=== PATIENT | female | born 1995 | race Caucasian/White ===

== ENCOUNTER 2021-09-19 12:33 | Emergency (ER) | payer OTHER, SELFPAY ==
[2021-09-19 12:51] VITALS: BP 153/65; PULSE 63; RESP 18; TEMP 36.8; O2SAT 98; BMI 18.8
[2021-09-19 13:38] LABS: Alanine Aminotransferase 12 IU/L (<35); Albumin 4.7 g/dL (3.5-5.0); Albumin Globulin Ratio 1.6 (1.0-2.8); Alkaline Phosphatase 45 U/L (38-126); Aspartate Aminotransferase 23 IU/L (14-36); BUN Creatinine Ratio 16.9 (6-22); Bilirubin Total 0.5 mg/dL (0.2-1.3); Blood Urea Nitrogen 11 mg/dL (7-17); Calcium 9.6 mg/dL (8.4-10.2); Carbon Dioxide 25 mmol/L (22-32); Chloride 107 mmol/L (98-107); Estimated Glomerular Filt Rate > 60.0 mL/min (>60); Globulin 2.9 g/dL (1.7-4.1); Glucose 95 mg/dL (70-100); HEMOLYSIS < 15 (0-50); Lipase 46 U/L (23-300); Sodium 141 mmol/L (137-145); Total Protein 7.6 g/dL (6.3-8.2)
[2021-09-19 13:43] LABS: Add Manual Diff / Slide Review NO; Basophils Absolute Auto 0 /uL (0-100); Basophils Percent Auto 0.5 % (0-2); Eosinophils Absolute Auto 100 /uL (0-450); Eosinophils Percent Auto 2.7 % (2-4); Hemoglobin 13.3 g/dL (12.0-16.0); Lymphocytes Absolute Auto 1600 /uL (1100-4500); Lymphocytes Percent Auto 32.1 % (25-40); Mean Corpuscular HGB Conc 34.9 % (30-36); Mean Corpuscular Hemoglobin 30.9 PG (26-34); Mean Corpuscular Volume 88.4 fL (80-100); Monocytes Absolute Auto 300 /uL (0-900); Monocytes Percent Auto 6.6 % (3-14); Neutrophils Absolute Auto 3000 /uL (1500-7000); Neutrophils Percent Auto 58.1 % (50-75); Platelet Count 166 X10^3/uL (150-400); Red Cell Distribution Width 12.2 % (11.6-14.8); White Blood Cell Count 5.1 X10^3/uL (4.5-11.0)
--- NOTE | 2021-09-19 14:17 | DI.CT.S_ITS ---
PROCEDURE: CT ABDOMEN PELVIS W CON INDICATIONS: Left upper quadrant mass TECHNIQUE: After the administration of intravenous contrast, axial sections acquired from the lung bases to the pubic symphysis. Coronal and sagittal reformats were performed. For radiation dose reduction, the following was used: automated exposure control, adjustment of mA and/or kV according to patient size. COMPARISON: None. FINDINGS: Image quality: Excellent. Lung bases: Unremarkable. Heart: No significant findings. ABDOMEN: Liver: 1 centimeter cyst versus hemangioma noted in the left lobe of the liver. Gallbladder: Unremarkable. Biliary ducts: Unremarkable. Pancreas: Unremarkable. Spleen: Unremarkable. Adrenal Glands: Unremarkable. Kidneys and Ureters: Unremarkable. Stomach and Bowel: Stomach, small bowel loops, and colon are unremarkable. Moderate amount of stool noted throughout the colon. Appendix is not definitely visualized, however no inflammatory changes or free fluid are identified adjacent to the cecum. Peritoneum: No abnormal intraperitoneal fluid. No free air. Ventral Wall: No hernias. No abnormal mass identified deep to metallic BB localizer placed over the upper left abdomen at the level of the lower stomach. Abdominal Nodes: No retroperitoneal or mesenteric adenopathy by size criteria. Vessels: Aorta and inferior vena cava are normal in size. PELVIS: Pelvic Organs: Unremarkable. Bladder: Unremarkable. Pelvic Nodes: No enlarged lymph nodes. Miscellaneous: No hernias are seen. Bones: Mild multilevel degenerative disc changes noted. L2 and L5 limbus vertebrae incidentally noted. IMPRESSION: 1. No abnormal mass identified. 2. Moderate fecal loading throughout the colon. Dictated by: Sandra Lo MD, PhD on 09/19/2021 at 14:41 Approved by: Sandra Lo MD, PhD on 09/19/2021 at 14:48
--- NOTE | 2021-09-19 15:06 | ED.ABDPAIN ---
HPI - Abdominal Pain <Stephen Ramirez PA-C - Last Filed: 09/19/21 18:51> General Chief Complaint: Abdominal Pain Stated Complaint: Left Abd Lump, Growing and Getting Harder Time Seen by Provider: 09/19/21 13:39 Source: patient Mode of arrival: Ambulatory History of Present Illness HPI narrative: Patient is a 26-year-old female presenting to the emergency department today for evaluation of a left-sided abdominal mass. Patient states that she 1st noticed the development of a mass just below her left ribcage on 08/27/2021, however she states that the mass has gotten bigger and ?harder? over time. [place] and a left upper quadrant ultrasound was obtained which was inconclusive. Patient states that the mass is not painful and she states that it is not spreading elsewhere. No fever, chills, chest pain, shortness of breath, cough, abdominal pain, nausea, vomiting, dysuria, hematuria reported no other concerns were voiced at this time. Related Data Home Medications Medication Instructions Recorded Confirmed estradiol-norgestimate 1 mg (15)/1 1 tab PO DAILY 09/19/21 09/19/21 mg-0.09 mg (15) tablet Allergies Allergy/AdvReac Type Severity Reaction Status Date / Time No Known Drug Allergies Allergy Verified 09/19/21 12:55 Review of Systems <Stephen Ramirez PA-C - Last Filed: 09/19/21 18:51> Constitutional Constitutional: Denies chills, Denies fatigue, Denies fever(s), Denies frequent falls, Denies lethargy and Denies weakness ENT Ears, Nose, Mouth, and Throat: Denies neck pain Cardiovascular Cardiovascular: Denies chest pain, Denies irregular heart rhythm, Denies lightheadedness, Denies palpitations, Denies dyspnea, Denies dyspnea on exertion and Denies orthopnea Respiratory Respiratory: Denies cough, Denies dyspnea, Denies dyspnea on exertion and Denies wheezing Gastrointestinal Gastrointestinal: Denies abdominal pain, Denies change in bowel habits, Reports constipation, Reports diarrhea, Denies nausea, Denies vomiting and Reports other (Left-sided abdominal mass) Genitourinary Genitourinary: Denies hematuria, Denies flank pain, Denies urinary incontinence and Denies urinary urgency Musculoskeletal Musculoskeletal: Denies back pain, Denies muscle weakness, Denies neck pain, Denies numbness and Denies tingling Integumentary/Breasts Skin/Breast: Denies pruritus, Denies erythema, Denies rash and Denies wounds Neurologic Neurologic: Denies frequent falls, Denies numbness, Denies tingling and Denies weakness Endocrine Endocrine: Denies fatigue and Denies palpitations Allergic/Immunologic Allergic/Immunologic: Denies wheezing Patient History <Stephen Ramirez PA-C - Last Filed: 09/19/21 18:51> Social History Smoking Status: Never smoker Smoking Status: Never smoker alcohol intake frequency: 0-2 drinks per day Substance Use Type: does not use Exam <Stephen Ramirez PA-C - Last Filed: 09/19/21 18:51> Narrative Exam Narrative: GENERAL: 26 year old patient appears stated age. Well-developed patient, in no acute distress. HEAD: Atraumatic. Normocephalic. EYES: Pupils equal round and reactive. Extraocular motions intact. No scleral icterus. No injection or drainage. ENT: Nose without bleeding, purulent drainage. Throat without erythema, tonsillar hypertrophy or exudate. Airway patent. NECK: Trachea midline. Non tender CARDIOVASCULAR: Regular rate and rhythm without murmurs, gallops, or rubs. RESPIRATORY: Clear to auscultation. Breath sounds equal bilaterally. No wheezes, rales, or rhonchi. GASTROINTESTINAL: Abdomen soft, nondistended. Approximately 4 cm mass appreciated in left upper quadrant of the abdomen inferior to the left rib cage. Mild tenderness to palpation appreciated along the left upper quadrant. No swelling, fluctuance, warmth, or erythema appreciated. EXTREMITIES: No edema or joint tenderness. BACK: Nontender without deformity or crepitance. No flank tenderness. NEURO: AOx3. SKIN: No rash or erythema of visible areas Initial Vital Signs Initial Vital Signs: Vital Signs Temperature 98.3 F 09/19/21 12:51 Pulse Rate 63 09/19/21 12:51 Respiratory Rate 18 09/19/21 12:51 Blood Pressure 153/65 H 09/19/21 12:51 Pulse Oximetry 98 09/19/21 12:51 <Lizandro Herrera DO - Last Filed: 09/20/21 08:36> Initial Vital Signs Initial Vital Signs: Vital Signs Temperature 98.3 F 09/19/21 12:51 Pulse Rate 63 09/19/21 12:51 Respiratory Rate 18 09/19/21 12:51 Blood Pressure 153/65 H 09/19/21 12:51 Pulse Oximetry 98 09/19/21 12:51 Course <Stephen Ramirez PA-C - Last Filed: 09/19/21 18:51> Course Course Narrative: CBC, CMP, lipase, urine dipstick, CT abdomen and pelvis ordered. Orders Ordered: ED Orders 09/19/21 13:00 Complete Blood Count AUTO DIFF Stat Comprehensive Metabolic Panel Stat Lipase Stat 09/19/21 14:17 CT abdomen pelvis w con Stat Vital Signs Vital signs: Vital Signs - 8 hr 09/19/21 12:51 09/19/21 15:19 Temperature 98.3 F Pulse Rate 63 55 L Respiratory Rate 18 16 Blood Pressure 153/65 H 105/63 Pulse Oximetry 98 99 <Lizandro Herrera DO - Last Filed: 09/20/21 08:36> Orders Ordered: ED Orders 09/19/21 13:00 Complete Blood Count AUTO DIFF Stat Comprehensive Metabolic Panel Stat Lipase Stat 09/19/21 14:17 CT abdomen pelvis w con Stat Vital Signs Vital signs: Vital Signs - 8 hr 09/19/21 12:51 09/19/21 15:19 Temperature 98.3 F Pulse Rate 63 55 L Respiratory Rate 18 16 Blood Pressure 153/65 H 105/63 Pulse Oximetry 98 99 MDM - Abdominal Pain <CHANCE Mohamud Last Filed: 09/19/21 18:51> Lab Data Result diagrams: 09/19/21 13:00 09/19/21 13:00 Labs: Lab Results 09/19/21 09/19/21 Range/Units 13:00 13:00 WBC 5.1 (4.5-11.0) X10^3/uL RBC 4.30 (4.0-5.2) X10^6/uL Hgb 13.3 (12.0-16.0) g/dL Hct 38.0 (36-46) % MCV 88.4 (80-100) fL MCH 30.9 (26-34) PG MCHC 34.9 (30-36) % RDW 12.2 (11.6-14.8) % Plt Count 166 (150-400) X10^3/uL Neut % (Auto) 58.1 (50-75) % Lymph % (Auto) 32.1 (25-40) % [place] % (Auto) 6.6 (3-14) % Eos % (Auto) 2.7 (2-4) % Baso % (Auto) 0.5 (0-2) % Neut # (Auto) 3000 (2765-1607) /uL Lymph # (Auto) 1600 (8460-3066) /uL [place] # (Auto) 300 (0-900) /uL Eos # (Auto) 100 (0-450) /uL Baso # (Auto) 0 (0-100) /uL Sodium 141 (137-145) mmol/L Potassium 4.0 (3.4-5.1) mmol/L Chloride 107 (98-107) mmol/L Carbon Dioxide 25 (22-32) mmol/L BUN 11 (7-17) mg/dL Creatinine 0.65 (0.52-1.04) mg/dL Estimated GFR > 60.0 (>60) mL/min BUN/Creatinine Ratio 16.9 (6-22) Glucose 95 (70-100) mg/dL Calcium 9.6 (8.4-10.2) mg/dL Total Bilirubin 0.5 (0.2-1.3) mg/dL AST 23 (14-36) IU/L ALT 12 (<35) IU/L Alkaline Phosphatase 45 (38-126) U/L Total Protein 7.6 (6.3-8.2) g/dL Albumin 4.7 (3.5-5.0) g/dL Globulin 2.9 (1.7-4.1) g/dL Albumin/Globulin Ratio 1.6 (1.0-2.8) Lipase 46 (23-300) U/L Point of care testing: Point of Care Testing Test Results Negative Urine Dip Bedside Urine Glucose Negative Bedside Urine Bilirubin - Negative Bedside Urine Ketone - Negative Urine Specific [place] 1.015 Bedside Urine Occult Blood - Negative Bedside Urine pH 7.0 Bedside Urine Protein - Negative Bedside Urine Urobilinogen 0.2 Bedside Urine Nitrite - Negative Bedside Urine Leukocytes - Negative Esterase Imaging Data CT scan - abdomen/pelvis: Radiologist's Impression: PROCEDURE:? CT ABDOMEN PELVIS W CON ? INDICATIONS:? Left upper quadrant mass ? TECHNIQUE:? After the administration of intravenous contrast, axial sections acquired from the lung bases to the pubic symphysis.? Coronal and sagittal reformats were performed.? For radiation dose reduction, the following was used:? automated exposure control, adjustment of mA and/or kV according to patient size.? ? COMPARISON:? None. ? FINDINGS:? Image quality:? Excellent.? ? Lung bases:? Unremarkable. Heart:? No significant findings. ? ABDOMEN: Liver:? 1 centimeter cyst versus hemangioma noted in the left lobe of the liver. Gallbladder:? Unremarkable.? ? Biliary ducts:? Unremarkable.? ? Pancreas:? Unremarkable.? ? Spleen:? Unremarkable.? ? Adrenal Glands:? Unremarkable.? ? Kidneys and Ureters:? Unremarkable.? ? ? Stomach and Bowel:? Stomach, small bowel loops, and colon are unremarkable.? Moderate amount of stool noted throughout the colon.? Appendix is not definitely visualized, however no inflammatory changes or free fluid are identified adjacent to the cecum.? Peritoneum:? No abnormal intraperitoneal fluid.? No free air.? ? Ventral Wall: ? No hernias.? No abnormal mass identified deep to metallic BB localizer placed over the upper left abdomen at the level of the lower stomach.? Abdominal Nodes:? No retroperitoneal or mesenteric adenopathy by size criteria.? Vessels:? Aorta and inferior vena cava are normal in size.? ? PELVIS: Pelvic Organs:? Unremarkable.? ? Bladder:? Unremarkable.? ? Pelvic Nodes: No enlarged lymph nodes.? Miscellaneous: No hernias are seen. ? ? ? Bones:? Mild multilevel degenerative disc changes noted.? L2 and L5 limbus vertebrae incidentally noted. ? ? IMPRESSION:? ? 1. No abnormal mass identified. ? 2. Moderate fecal loading throughout the colon.? ? ? Dictated by: Sandra Lo MD, PhD on 09/19/2021 at 14:41 ? ? Approved by: Sandra Lo MD, PhD on 09/19/2021 at 14:48 ? MDM Narrative Medical decision making narrative: To consider hernia versus splenomegaly versus constipation versus cyst versus lipoma. Overall physical examination, history, lab work, and imaging reassuring. Discussed with patient results of lab work and imaging. At this time patient feels comfortable being discharged home. Strict return precautions were discussed with the patient prior to being discharged. <Lizandro Martinsan, - Last Filed: 09/20/21 08:36> Lab Data Labs: Lab Results 09/19/21 09/19/21 Range/Units 13:00 13:00 WBC 5.1 (4.5-11.0) X10^3/uL RBC 4.30 (4.0-5.2) X10^6/uL Hgb 13.3 (12.0-16.0) g/dL Hct 38.0 (36-46) % MCV 88.4 (80-100) fL MCH 30.9 (26-34) PG MCHC 34.9 (30-36) % RDW 12.2 (11.6-14.8) % Plt Count 166 (150-400) X10^3/uL Neut % (Auto) 58.1 (50-75) % Lymph % (Auto) 32.1 (25-40) % [place] % (Auto) 6.6 (3-14) % Eos % (Auto) 2.7 (2-4) % Baso % (Auto) 0.5 (0-2) % Neut # (Auto) 3000 (8564-2978) /uL Lymph # (Auto) 1600 (9065-4862) /uL [place] # (Auto) 300 (0-900) /uL Eos # (Auto) 100 (0-450) /uL Baso # (Auto) 0 (0-100) /uL Sodium 141 (137-145) mmol/L Potassium 4.0 (3.4-5.1) mmol/L Chloride 107 (98-107) mmol/L Carbon Dioxide 25 (22-32) mmol/L BUN 11 (7-17) mg/dL Creatinine 0.65 (0.52-1.04) mg/dL Estimated GFR > 60.0 (>60) mL/min BUN/Creatinine Ratio 16.9 (6-22) Glucose 95 (70-100) mg/dL Calcium 9.6 (8.4-10.2) mg/dL Total Bilirubin 0.5 (0.2-1.3) mg/dL AST 23 (14-36) IU/L ALT 12 (<35) IU/L Alkaline Phosphatase 45 (38-126) U/L Total Protein 7.6 (6.3-8.2) g/dL Albumin 4.7 (3.5-5.0) g/dL Globulin 2.9 (1.7-4.1) g/dL Albumin/Globulin Ratio 1.6 (1.0-2.8) Lipase 46 (23-300) U/L Point of care testing: Point of Care Testing Test Results Negative Urine Dip Bedside Urine Glucose Negative Bedside Urine Bilirubin - Negative Bedside Urine Ketone - Negative Urine Specific [place] 1.015 Bedside Urine Occult Blood - Negative Bedside Urine pH 7.0 Bedside Urine Protein - Negative Bedside Urine Urobilinogen 0.2 Bedside Urine Nitrite - Negative Bedside Urine Leukocytes - Negative Esterase Discharge Plan Departure Patient Disposition: Home Clinical Impression: Abdominal pain, Constipation Instructions: DI for Constipation Activity Restrictions/Additional Instructions: *You have been diagnosed with abdominal pain, constipation *What to do: *Please continue to take your regular medications as directed. [ ] New medication prescriptions sent to your pharmacy: [ ] [ ] New medication written as a paper prescription [X] No new medications given *Please follow up with your primary care provider in 2-3 days, call for an appointment. Let them know you were seen in the Emergency Department and that we ask that you be seen in follow up. We will electronically transmit a record of today's note if your PCP is in our system *If you do not have a primary care provider please contact the [facility] Resource line at [phone]. They will ask some questions about your medical history and help get you set up with a doctor in the community. *Return to Emergency Department if you should have any new, worsening or concerning symptoms, such as fever greater than 101 F, shaking chills, worsening pain, mass size increases, persistent vomiting or other bothersome symptoms. Prescriptions: No Action estradiol-norgestimate 1 mg (15)/1 mg- 0.09 mg (15) Tablet 1 tab PO DAILY 0RF Referrals: Delia Cuadra MD [Primary Care Provider] - <Lizandro Herrera DO - Last Filed: 09/20/21 08:36> Cosign ED Attending Bryan Attestation: I was immediately available in the department for consultation. This documentation has been reviewed and I agree with assessment and plan. Supervised by Lizandro Herrera DO
[2021-09-19 15:19] VITALS: BP 105/63; PULSE 55; RESP 16; O2SAT 99
== END 2021-09-19 15:22 | disposition home or self-care (01) ==
PROVIDERS: Emergency Medicine; Emergency Provider Physician Assistant; PCP Student in an Organized Health Care Education/Training Program
DX: R10.12 Left upper quadrant pain (principal); K59.00 Constipation, unspecified
CPT/HCPCS: 36415; 74177; 80053; 81003; 81025; 83690; 85025; 99284

== ENCOUNTER → 2022-10-21 06:43 | Outpatient (CLI) | payer OTHER, SELFPAY ==
--- NOTE | 2022-10-21 06:47 | DI.US.S_ITS ---
PROCEDURE: US OB <= 14 WEEKS FETUS INDICATIONS: Dating and viability OUTSIDE/PRIOR DATING DATA: Last menstrual period (LMP): 08/07/2022. LMP-based estimated date of delivery (JONAH): 05/14/2023. First dating scan (date and location): 10/21/2022. Estimated date of delivery (JONAH) from first dating scan: 05/11/2023. The calculations are made using the clinical JONAH of 05/14/2023. TECHNIQUE: Real-time scanning was performed of the fetus and maternal pelvic organs, with image documentation. Endovaginal scanning was also performed to better visualize the fetus and maternal ovaries. COMPARISON: None. FINDINGS: Embryo: Ney-rump length measuring 4.4 cm, gestational age 11 weeks 1 day Heart rate: 163 bpm No perigestational hemorrhage. A yolk sac is seen. Maternal organs: Left ovary is not well seen. Right ovary is within normal limits. IMPRESSION: 1. Baires living intrauterine at 11 weeks 1 day based on today's crown rump length. 2. No perigestational hemorrhage. We strive to produce accurate, complete, and clear reports of imaging services. To assist us in improving patient care, this report was composed using standard report templates and voice recognition software. Therefore, it may contain abnormal punctuation, insertions and/or omissions. Occasional wrong-word or sound-alike substitutions may occur. Though we review the report and make efforts to correct it, we do recommend that the report be read carefully in proper context to recognize any text inaccuracies. Dictated by: Kraig Chin M.D. on 10/21/2022 at 9:28 Approved by: Kraig hCin M.D. on 10/21/2022 at 9:30
== END ==
PROVIDERS: PCP Physician Assistant; Referring Provider Obstetrics & Gynecology; Visit Provider Obstetrics & Gynecology
DX: Z36.87 Encounter for antenatal screening for uncertain dates (principal); Z3A.11 11 weeks gestation of pregnancy
CPT/HCPCS: 76801; 76817

== ENCOUNTER → 2022-11-03 14:50 | Outpatient (CLI) | payer OTHER, SELFPAY ==
[2022-11-03 20:44] LABS: Urine N gonorrhoeae NOT DETECTED
[2022-11-03 20:48] LABS: Urine Chlamydia NOT DETECTED
== END ==
PROVIDERS: PCP Physician Assistant; Visit Provider Obstetrics & Gynecology
DX: Z34.01 Encounter for supervision of normal first pregnancy, first trimester (principal); Z11.3 Encounter for screening for infections with a predominantly sexual mode of transmission; Z3A.12 12 weeks gestation of pregnancy
CPT/HCPCS: 87491; 87591

== ENCOUNTER → 2022-11-03 16:37 | Outpatient (CLI) | payer OTHER, SELFPAY ==
[2022-11-03 17:16] LABS: Add Manual Diff / Slide Review NO; Basophils Absolute Auto 0 /uL (0-100); Basophils Percent Auto 0.4 % (0-2); Eosinophils Absolute Auto 200 /uL (0-450); Eosinophils Percent Auto 1.8 % (2-4); Hematocrit 34.1 % (36-46); Hemoglobin 12.2 g/dL (12.0-16.0); Lymphocytes Absolute Auto 1600 /uL (1100-4500); Lymphocytes Percent Auto 17.6 % (25-40); Mean Corpuscular HGB Conc 35.8 % (30-36); Mean Corpuscular Hemoglobin 31.4 PG (26-34); Mean Corpuscular Volume 87.7 fL (80-100); Monocytes Absolute Auto 500 /uL (0-900); Monocytes Percent Auto 5.3 % (3-14); Neutrophils Absolute Auto 6700 /uL (1500-7000); Neutrophils Percent Auto 74.9 % (50-75); Platelet Count 175 X10^3/uL (150-400); Red Blood Cell Count 3.89 X10^6/uL (4.0-5.2); Red Cell Distribution Width 13.1 % (11.6-14.8); White Blood Cell Count 8.9 X10^3/uL (4.5-11.0)
[2022-11-03 17:45] LABS: Appearance Urine UA CLEAR; Bilirubin Urine UA NEGATIVE (NEGATIVE); Color Urine UA YELLOW; Glucose Urine UA NEGATIVE (Negative); Ketones Urine UA NEGATIVE (NEGATIVE); Leukocyte Esterase Urine UA NEGATIVE (NEGATIVE); Nitrite Urine UA NEGATIVE (Negative); Occult Blood Urine UA NEGATIVE (Negative); Protein Urine UA NEGATIVE (Negative); Specific Gravity Urine UA 1.015 (1.000-1.035); Urobilinogen Urine UA 0.2 E.U./dL (0.2)
[2022-11-03 17:47] LABS: pH Urine UA 6.5 (4.5-8.0)
[2022-11-04 08:36] LABS: RPR Screen Non Reactive (Non Reactive); Varicella IgG Antibody 1414 index (Immune >165)
[2022-11-05 16:29] LABS: HIV 1 & 2 Ab/Ag 4th Gen Combo NEGATIVE (NEGATIVE); Hep C Virus Ab w/Reflex Quant NEGATIVE s/c (NEGATIVE); Hepatitis B Surface Antigen NEGATIVE s/c (NEGATIVE)
== END ==
PROVIDERS: PCP Physician Assistant; Referring Provider Obstetrics & Gynecology; Visit Provider Obstetrics & Gynecology
DX: Z34.01 Encounter for supervision of normal first pregnancy, first trimester (principal); Z11.3 Encounter for screening for infections with a predominantly sexual mode of transmission; Z3A.12 12 weeks gestation of pregnancy
CPT/HCPCS: 80055; 81003; 86787; 86803; 86850; 86900; 86901; 87086; 87389; 87491; 87591

== ENCOUNTER → 2022-11-27 14:10 | Outpatient (CLI) | payer OTHER, SELFPAY ==
[2022-11-30 13:09] LABS: AFP Value 63.2 ng/mL (.); Insulin Dep Diabetes No (.); OSBR Risk 1IN 1848 (.); Results Report (.); Test Results *Screen Negative* (.)
== END ==
PROVIDERS: PCP Physician Assistant; Referring Provider Obstetrics & Gynecology; Visit Provider Obstetrics & Gynecology
DX: Z34.02 Encounter for supervision of normal first pregnancy, second trimester (principal); Z3A.16 16 weeks gestation of pregnancy
CPT/HCPCS: 36415; 82105

== ENCOUNTER → 2022-12-28 10:11 | Outpatient (CLI) | payer OTHER, SELFPAY ==
--- NOTE | 2022-12-28 10:12 | DI.US.S_ITS ---
PROCEDURE: US OB >= 14 WEEKS FETUS INDICATIONS: ANATOMY OUTSIDE/PRIOR DATING DATA: Last menstrual period (LMP): 08/17/2022. LMP-based estimated date of delivery (JONAH): 05/14/2023. First dating scan (date and location): 10/21/2022. Estimated date of delivery (JONAH) from first dating scan: 05/11/2023. The calculations are made using the LMP JONAH of 05/14/2023. TECHNIQUE: Real-time scanning was performed of the fetus, with image documentation and biometric measurements. COMPARISON: None. FINDINGS: General: A single living intrauterine gestation is present. Presentation: Transverse head to the left. Placenta: Placental position is posterior , without previa. Amniotic fluid index: 15.0 cm, normal range is 5-24 cm. Single deepest vertical pocket is 5.3 cm. heart rate: 137 beats per minute. Maternal cervical canal: 4.1 cm long. Normal lower limit is 2.5 cm. biometrics: Biparietal diameter: 5.2 cm. 21 weeks 6 days. Head circumference: 19.2 cm. 21 weeks 3 days. Abdominal circumference: 16.3 cm. 21 weeks 2 days. Femur length: 3.2 cm. 19 weeks 6 days. Clinically estimated gestational age: 20 weeks 3 days Composite gestational age from present scan: 21 weeks 1 day Estimated weight and percentile: 378 g. 66 percentile Anatomic survey: Neuro: Ventricles are non-dilated at less than 10 mm. Cisterna magna is normal at 3-11 mm. Cerebellum is normal in size and morphology. Nuchal skin fold: Normal at less than 6 mm between 14-21 weeks gestational age. Face: Nose and lips, facial profile are normal. Spine: No evidence for spina bifida. Heart: 4-chambered heart is present, with normal ventricular outflow tracts. Diaphragm: Diaphragm is intact. Stomach: Left-sided stomach is present. Kidneys: No hydronephrosis. Normal is less than 5 mm in 2nd trimester, less than 7 mm in 3rd trimester. Cord: 3-vessel cord has orthotopic insertion. Bladder: Normal in size. Extremities: All 4 extremities identified. IMPRESSION: 1. All anatomy is visualized and is normal. 2. Estimated gestational age by LMP is 20 weeks 3 days We strive to produce accurate, complete, and clear reports of imaging services. To assist us in improving patient care, this report was composed using standard report templates and voice recognition software. Therefore, it may contain abnormal punctuation, insertions and/or omissions. Occasional wrong-word or sound-alike substitutions may occur. Though we review the report and make efforts to correct it, we do recommend that the report be read carefully in proper context to recognize any text inaccuracies. Dictated by: Pravin Brown M.D. on 12/28/2022 at 13:18 Approved by: Pravin Brown M.D. on 12/28/2022 at 13:22
== END ==
PROVIDERS: PCP Physician Assistant; Referring Provider Obstetrics & Gynecology; Visit Provider Obstetrics & Gynecology
DX: Z34.02 Encounter for supervision of normal first pregnancy, second trimester (principal); Z3A.20 20 weeks gestation of pregnancy
CPT/HCPCS: 76811